=== PATIENT | male | born 1985 | race African-American/Black ===

== ENCOUNTER 2020-03-13 21:23 | Emergency (ER) | payer BC, OTHER ==
[2020-03-13] MEDS ORDERED: NA CHLORIDE 0.9% 1,000 ML ONE (22:58)
[2020-03-13] MEDS ORDERED: CEFTRIAXONE/SWI 1gm 1 GM/10 ML SYR ONE (22:58)
[2020-03-13 23:21] LABS: Hematocrit 44.4 % (39.6-49.0); Lymphocytes % 35.3 % (15.3-44.8); MPV 10.1 fL (7.6-11.3); RBC Red Blood Cell Count 4.64 M/uL (4.33-5.43)
[2020-03-13 23:43] LABS: Albumin 3.8 g/dL (3.4-5.0); Bilirubin Total 0.3 mg/dL (0.2-1.0); Protein, Total 7.9 g/dL (6.4-8.2)
--- NOTE | 2020-03-14 01:38 | ER ---
Nurse's Notes [facility] Name: Akshat Marlow Age: 34 yrs Sex: Male : 1985 Arrival Date: 03/13/2020 Time: 21:24 Bed 5 Private MD: Diagnosis: Hematuria Presentation: 03/13 23:04 Chief complaint: Patient states: Reports he started urinating bright red bloody urine. ea Pt denies injury states "all I was doing was lifting weights". Coronavirus screen: At this time, the client does not indicate any symptoms associated with coronavirus-19. Ebola Screen: No symptoms or risks identified at this time. Initial Sepsis Screen: Does the patient meet any 2 criteria? No. Patient's initial sepsis screen is negative. Does the patient have a suspected source of infection? No. Patient's initial sepsis screen is negative. Risk Assessment: Do you want to hurt yourself or someone else? Patient reports no desire to harm self or others. Onset of symptoms was March 13, 2020. 23:04 Acuity: ERIBERTO 3 ea 23:04 Method Of Arrival: Ambulatory ea Triage Assessment: 23:06 General: Appears in no apparent distress. Behavior is appropriate for age. Pain: Denies ea pain. Historical: - Allergies: 23:06 No Known Allergies; ea - PMHx: 23:06 GERD; ea - PSHx: 23:06 Cholecystectomy; ea - Immunization history:: Adult Immunizations up to date. - Family history:: not pertinent. - Social history:: Smoking status: Patient denies any tobacco usage or history of. Screenin:04 Abuse screen: Denies threats or abuse. Nutritional screening: No deficits noted. ea Tuberculosis screening: No symptoms or risk factors identified. Fall Risk IV access (20 points). Assessment: 23:07 General: Appears in no apparent distress. Behavior is appropriate for age. Pain: Denies ea pain. Neuro: Level of Consciousness is awake, alert, obeys commands, Oriented to person, place, time. Cardiovascular: Patient's skin is warm and dry. Respiratory: Airway is patent Respiratory effort is even, unlabored, Respiratory pattern is regular, symmetrical. : Reports bloody urine. Derm: Skin is pink, warm \\T\\ dry. 23:29 Reassessment: Patient and/or family updated on plan of care and expected duration. Pain ea level reassessed. Patient is alert, oriented x 3, equal unlabored respirations, skin warm/dry/pink. Pt taken to CT. 03/14 01:52 Reassessment: Bladder scanner post void volume is 20 mLs. ea 02:03 Reassessment: Patient and/or family updated on plan of care and expected duration. Pain ea level reassessed. Patient is alert, oriented x 3, equal unlabored respirations, skin warm/dry/pink. Discharge instruction given to patient, verbalized the understanding of instruction. Pt left ED ambulatory tolerating well. Vital Signs: 03/13 21:51 BP 152 / 97; Pulse 96; Temp 99.9(O); Pulse Ox 100% on R/A; tt3 23:00 BP 141 / 75; Pulse 90; Resp 16; Pulse Ox 99% ; rr5 ED Course: 21:24 Patient arrived in ED. cl3 21:58 Jett Monson MD is Attending Physician. danielle 22:00 Luis Oliva RN is Primary Nurse. rr5 22:53 Pelvis XRAY In Process Unspecified. EDMS 22:55 Inserted saline lock: 20 gauge in right antecubital area, using aseptic technique. ea 23:06 Triage completed. ea 23:06 Patient has correct armband on for positive identification. Placed in gown. Bed in low ea position. Call light in reach. Pulse ox on. NIBP on. 23:06 Arm band placed on Patient placed in an exam room, on a stretcher, on pulse oximetry. ea 23:48 CT Stone Protocol In Process Unspecified. EDMT 03/14 01:38 Rad Arthur MD is Referral Physician. [facility] 02:02 No provider procedures requiring assistance completed. IV discontinued, intact, ea bleeding controlled, No redness/swelling at site. Pressure dressing applied. Administered Medications: 03/13 23:00 Drug: Rocephin 1 grams Route: IV; Rate: per protocol; Site: right antecubital; ea 03/14 02:02 Follow up: Response: No adverse reaction; IV Status: Completed infusion ea 03/13 23:04 Drug: NS 0.9% 1000 ml Route: IV; Rate: 1 bolus; Site: right antecubital; ea 03/14 02:01 Follow up: Response: No adverse reaction; IV Status: Completed infusion; IV Intake: ea 1000ml 02:01 Drug: Cipro 500 mg Route: PO; ea 02:02 Follow up: Response: Medication administered at discharge. ea Intake: 02:01 IV: 1000ml; Total: 1000ml. ea Outcome: 01:38 Discharge ordered by . danielle 02:02 Discharged to home ambulatory. dillan 02:02 Condition: stable 02:02 Discharge instructions given to patient, Instructed on discharge instructions, follow up and referral plans. medication usage, Demonstrated understanding of instructions, follow-up care, medications, Prescriptions given X 2. 02:05 Patient left the ED. ea Signatures: Dispatcher [employer] EDMT Jett Monson MD MD cha Antunez, Elena RN RN Luis Velasco RN RN rr5 Mayela Moore cl3 David Betancourt tt3
--- NOTE | 2020-03-14 01:38 | EDPHYS ---
Physician Documentation [facility] Name: Akshat Marlow Age: 34 yrs Sex: Male : 1985 Arrival Date: 03/13/2020 Time: 21:24 Bed 5 Private MD: Jett Vides HPI: 03/13 22:30 This 34 yrs old Black Male presents to ER via Unassigned with complaints of Penile danielle Injury, Penile Bleeding. 22:30 The patient presents with urinary symptoms, HEMATURIA. Onset: The symptoms/episode danielle began/occurred just prior to arrival, today. Modifying factors: The symptoms are alleviated by nothing, the symptoms are aggravated by nothing. Associated signs and symptoms: The patient has no apparent associated signs or symptoms. Severity of symptoms: At their worst the symptoms were mild, in the emergency department the symptoms are unchanged. The patient has experienced a previous episode, last year. Historical: - Allergies: 23:06 No Known Allergies; ea - PMHx: 23:06 GERD; ea - PSHx: 23:06 Cholecystectomy; ea - Immunization history:: Adult Immunizations up to date. - Family history:: not pertinent. - Social history:: Smoking status: Patient denies any tobacco usage or history of. ROS: 22:30 Constitutional: Negative for fever, chills, and weight loss, Eyes: Negative for injury, danielle pain, redness, and discharge, ENT: Negative for injury, pain, and discharge, Neck: Negative for injury, pain, and swelling, Cardiovascular: Negative for chest pain, palpitations, and edema, Respiratory: Negative for shortness of breath, cough, wheezing, and pleuritic chest pain, Abdomen/GI: Negative for abdominal pain, nausea, vomiting, diarrhea, and constipation, Back: Negative for injury and pain, MS/Extremity: Negative for injury and deformity, Skin: Negative for injury, rash, and discoloration, Neuro: Negative for headache, weakness, numbness, tingling, and seizure, Psych: Negative for depression, anxiety, suicide ideation, homicidal ideation, and hallucinations, Allergy/Immunology: Negative for hives, rash, and allergies, Endocrine: Negative for neck swelling, polydipsia, polyuria, polyphagia, and marked weight changes, Hematologic/Lymphatic: Negative for swollen nodes, abnormal bleeding, and unusual bruising. 22:30 : Positive for hematuria, no penile trauma, no sex related. Exam: 22:30 Constitutional: This is a well developed, well nourished patient who is awake, alert, danielle and in no acute distress. Head/Face: Normocephalic, atraumatic. Eyes: Pupils equal round and reactive to light, extra-ocular motions intact. Lids and lashes normal. Conjunctiva and sclera are non-icteric and not injected. Cornea within normal limits. Periorbital areas with no swelling, redness, or edema. ENT: Nares patent. No nasal discharge, no septal abnormalities noted. Tympanic membranes are normal and external auditory canals are clear. Oropharynx with no redness, swelling, or masses, exudates, or evidence of obstruction, uvula midline. Mucous membranes moist. Neck: Trachea midline, no thyromegaly or masses palpated, and no cervical lymphadenopathy. Supple, full range of motion without nuchal rigidity, or vertebral point tenderness. No Meningismus. Chest/axilla: Normal chest wall appearance and motion. Nontender with no deformity. No lesions are appreciated. Cardiovascular: Regular rate and rhythm with a normal S1 and S2. No gallops, murmurs, or rubs. Normal PMI, no JVD. No pulse deficits. Respiratory: Lungs have equal breath sounds bilaterally, clear to auscultation and percussion. No rales, rhonchi or wheezes noted. No increased work of breathing, no retractions or nasal flaring. Abdomen/GI: Soft, non-tender, with normal bowel sounds. No distension or tympany. No guarding or rebound. No evidence of tenderness throughout. Back: No spinal tenderness. No costovertebral tenderness. Full range of motion. Skin: Warm, dry with normal turgor. Normal color with no rashes, no lesions, and no evidence of cellulitis. MS/ Extremity: Pulses equal, no cyanosis. Neurovascular intact. Full, normal range of motion. Neuro: Awake and alert, GCS 15, oriented to person, place, time, and situation. Cranial nerves II-XII grossly intact. Motor strength 5/5 in all extremities. Sensory grossly intact. Cerebellar exam normal. Normal gait. Psych: Awake, alert, with orientation to person, place and time. Behavior, mood, and affect are within normal limits. 22:30 : CVA tenderness, on the right, Male external genitalia: normal, Patient is not circumisioned. Bladder: is normal, Sexual behavior: the patient is sexually active, and reports a single partner. Vital Signs: 21:51 BP 152 / 97; Pulse 96; Temp 99.9(O); Pulse Ox 100% on R/A; tt3 23:00 BP 141 / 75; Pulse 90; Resp 16; Pulse Ox 99% ; rr5 MDM: 21:58 Patient medically screened. [facility] 22:33 Differential diagnosis: nonspecific abdominal pain, UTI, urethritis. Data reviewed: [facility] vital signs, nurses notes, lab test result(s), radiologic studies, CT scan, plain films. Data interpreted: traffic monitor specialist: rate is 96 beats/min, Pulse oximetry: on room air is 100 %. Test interpretation: by ED physician or midlevel provider: plain radiologic studies. Counseling: I had a detailed discussion with the patient and/or guardian regarding: the historical points, exam findings, and any diagnostic results supporting the discharge/admit diagnosis, lab results, radiology results, the need for outpatient follow up, for definitive care, a urologist. 03/14 01:36 ED course: dw patient importance of follow up, no sex. [facility] 03/13 22:30 Order name: CBC with Diff; Complete Time: 01:34 [facility] 03/13 22:30 Order name: Comprehensive Metabolic Panel; Complete Time: 01:34 [facility] 03/13 22:30 Order name: Urine Culture [facility] 03/13 22:30 Order name: CT Stone Protocol [facility] 03/13 22:30 Order name: Pelvis XRAY [facility] 03/13 22:30 Order name: Urine Dipstick-Ancillary (obtain specimen); Complete Time: 23:04 [facility] 03/14 01:37 Order name: Bladder Scanner: note pvr; Complete Time: 01:51 [facility] Administered Medications: 03/13 23:00 Drug: Rocephin 1 grams Route: IV; Rate: per protocol; Site: right antecubital; 03/14 02:02 Follow up: Response: No adverse reaction; IV Status: Completed infusion 03/13 23:04 Drug: NS 0.9% 1000 ml Route: IV; Rate: 1 bolus; Site: right antecubital; 03/14 02:01 Follow up: Response: No adverse reaction; IV Status: Completed infusion; IV Intake: ea 1000ml 02:01 Drug: Cipro 500 mg Route: PO; ea 02:02 Follow up: Response: Medication administered at discharge. ea Disposition: 03/14/20 01:38 Discharged to Home. Impression: Hematuria. - Condition is Stable. - Discharge Instructions: Hematuria, Adult. - Prescriptions for Flomax 0.4 mg Oral Capsule, Sust. Release 24 hr - take 1 capsule by ORAL route once daily 1/2 hour following the same meal each day; 14 capsule. Cipro 500 mg Oral Tablet - take 1 tablet by ORAL route every 12 hours for 7 days; 14 tablet. - Medication Reconciliation Form, Thank You Letter, Antibiotic Education, Prescription Opioid Use, Work release form form. - Follow up: Private Physician; When: 2 - 3 days; Reason: Recheck today's complaints, Continuance of care, Re-evaluation by your physician. Follow up: Rad Arthur MD; When: 2 - 3 days; Reason: Recheck today's complaints, Re-evaluation by your physician. - Problem is new. - Symptoms have improved. Signatures: Dispatcher [employer] EDKY Jett Monson MD MD cha Antunez, Elena RN RN dillan Corrections: (The following items were deleted from the chart) 01:38 01:38 03/14/2020 01:38 Discharged to Home. Impression: Hematuria. Condition is Stable. danielle Forms are Medication Reconciliation Form, Thank You Letter, Antibiotic Education, Prescription Opioid Use. Follow up: Private Physician; When: 2 - 3 days; Reason: Recheck today's complaints, Continuance of care, Re-evaluation by your physician. Problem is new. Symptoms have improved. [facility] 02:05 01:38 03/14/2020 01:38 Discharged to Home. Impression: Hematuria. Condition is Stable. ea Forms are Medication Reconciliation Form, Thank You Letter, Antibiotic Education, Prescription Opioid Use. Follow up: Private Physician; When: 2 - 3 days; Reason: Recheck today's complaints, Continuance of care, Re-evaluation by your physician. Follow up: Rad Arthur; When: 2 - 3 days; Reason: Recheck today's complaints, Re-evaluation by your physician. Problem is new. Symptoms have improved. [facility]
[2020-03-14] MEDS ORDERED: CIPROFLOXACIN HCL 500 MG TAB ONE (02:04)
--- NOTE | 2020-03-14 09:20 | RAD REPORT ---
EXAM DESCRIPTION: RAD - Pelvis - 03/13/2020 10:53 pm CLINICAL HISTORY: HEMATURIA COMPARISON: CT ABD PELVIS W CONTRAST dated 03/11/2008 TECHNIQUE: AP imaging of the pelvis was obtained. FINDINGS: No fracture of the bony pelvis. No fracture, dislocation or other acute hip joint finding. No significant SI joint findings. No soft tissue abnormality. Density of the overlying soft tissues limits detail. IMPRESSION: Negative pelvis for acute or significant findings.
--- NOTE | 2020-03-14 14:31 | RAD REPORT ---
EXAM DESCRIPTION: CT - Stone Protocol - 03/13/2020 11:48 pm\ CLINICAL HISTORY: Abdominal pain; Hematuria COMPARISON: None. TECHNIQUE: Abdomen/pelvis axial images acquired without IV contrast. Coronal and sagittal reformats created. Exam performed according to departmental dose-optimization program which includes automated exposure control, adjustment of mA and/or kV according to patient size, and/or use of iterative recon struction technique. FINDINGS: No free air or significant free fluid. Grossly unremarkable noncontrast appearance of liver, spleen, pancreas, adrenals, kidneys, urinary bl adder, and prostate. Nonvisualization of gallbladder which may be absent. Nonopacified small bowel and appendix unremarkable. Portions of large bowel difficult to accurately comment upon due to lack of adequate distention. Abdominal aorta unremarkable noncontrast appearance. Lower thoracic and lumbosacral spine degenerative disease. 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 IMPRESSION: No CT evidence of acute abdominal/pelvic disease. Electronically signed by: Koby Acevedo MD 03/14/2020 12:09 AM CDT Due to temporary technical issues with the PACS/Fluency reporting system, reports are being signed by the in house radiologist without review as a courtesy to ensure prompt reporting. The interpreting r adiologist is fully responsible for the content of the report.
[2020-03-17 19:05] VITALS: TEMP 99.9
[2020-03-17 19:09] VITALS: BP 141/75; O2SAT 99
== END 2020-03-14 02:05 | disposition home or self-care (01) ==
LOC: ER 21:23
DX: R31.9 Hematuria, unspecified (principal)
CPT/HCPCS: 96365; 87088; 85025; 36415; 80053; 76377; 74176; 72170; 99284; 96366; J0696; J7030; 87086

== ENCOUNTER 2020-11-03 16:49 | Emergency (ER) | payer BC, SELFPAY ==
[2020-11-03] MEDS ORDERED: NA CHLORIDE 0.9% 1,000 ML ONE (21:27)
[2020-11-03 21:32] LABS: Absolute Lymphocytes (CBC) 2.6 K/uL (0.7-4.9); Basophils % 0.8 % (0-1.3); Hematocrit 43.2 % (39.6-49.0); Lymphocytes % 48.1 % (15.3-44.8); MPV 10.4 fL (7.6-11.3); RBC Red Blood Cell Count 4.61 M/uL (4.33-5.43)
[2020-11-03 21:39] LABS: Protime INR 0.95
[2020-11-03 22:02] LABS: ALT/SGPT 19 U/L (12-78); AST/SGOT 19 U/L (15-37); Albumin 3.8 g/dL (3.4-5.0); Alkaline Phosphatase 70 U/L (45-117); BUN Blood Urea Nitrogen 12 mg/dL (7-18); Bicarbonate 27 mmol/L (21-32); Bilirubin Direct < 0.1 mg/dL (0-0.2); Bilirubin Total 0.6 mg/dL (0.2-1.0); Glucose Level 92 mg/dL (74-106); NT PRO-BNP 167 pg/mL (<125); Potassium 4.5 mmol/L (3.5-5.1); Protein, Total 7.7 g/dL (6.4-8.2); Sodium Level 137 mmol/L (136-145); Troponin (Emerg Dept Use Only) < 0.02 ng/mL (0.0-0.045)
[2020-11-03] MEDS ORDERED: ASPIRIN 81 MG CHEWABLE TABLET ONE (22:32)
--- NOTE | 2020-11-03 22:41 | ER ---
Nurse's Notes [facility] Name: Akshat Marlow Age: 35 yrs Sex: Male : 1985 Arrival Date: 11/03/2020 Time: 16:50 Bed 8 Private MD: Diagnosis: Obesity, unspecified;Dyspnea;Paresthesia of skin Presentation: 11/03 17:10 Chief complaint: Patient states: my left hand and occasionally my right hand is going iw numb, and also feels SOB and fatigued, s/s started a week ago, states he feels like his hand might be a little weaker than usual, started a week ago also , states both his feet have been hurting. Coronavirus screen: At this time, the client does not indicate any symptoms associated with coronavirus-19. Ebola Screen: Patient negative for fever greater than or equal to 101.5 degrees Fahrenheit, and additional compatible Ebola Virus Disease symptoms Patient denies exposure to infectious person. Patient denies travel to an Ebola-affected area in the 21 days before illness onset. No symptoms or risks identified at this time. Initial Sepsis Screen: Does the patient meet any 2 criteria? No. Patient's initial sepsis screen is negative. Does the patient have a suspected source of infection? No. Patient's initial sepsis screen is negative. Risk Assessment: Do you want to hurt yourself or someone else?. Onset of symptoms was October 27, 2020. 17:10 Method Of Arrival: Ambulatory iw 17:10 Acuity: ERIBERTO 3 iw Triage Assessment: 21:26 Respiratory: Onset: The symptoms/episode began/occurred. jm8 Historical: - Allergies: 17:13 No Known Allergies; iw - Home Meds: 17:13 Hydrochlorothiazide Oral [Active]; iw - PMHx: 17:13 GERD; iw - PSHx: 17:13 Cholecystectomy; iw - Immunization history:: Adult Immunizations not up to date. - Social history:: Smoking status: Patient reports the use of cigarette tobacco products, denies chronic smoking, but will smoke occasionally, Reported history of juuling and/or vaping. Screenin:23 Abuse screen: Denies threats or abuse. Denies injuries from another. Nutritional jm8 screening: No deficits noted. Tuberculosis screening: No symptoms or risk factors identified. Fall Risk IV access (20 points). Assessment: 21:19 General: Appears in no apparent distress. Behavior is calm, cooperative, appropriate jm8 for age, Reports numbness and shortness of breath. Denies fever, feeling ill, fatigue, chills. Pain: Denies pain. Neuro: Reports numbness. Cardiovascular: Rhythm is regular. Cardiovascular: No deficits noted. Respiratory: Reports shortness of breath. GI: No deficits noted. : No deficits noted. EENT: No deficits noted. Derm: No deficits noted. Musculoskeletal: No deficits noted. 21:24 Respiratory: Airway is patent Breath sounds are clear bilaterally. jm8 21:25 Respiratory: Reports shortness of breath since last week intermitently Respiratory jm8 effort is even, unlabored, Respiratory pattern is regular, symmetrical, the patient has mild shortness of breath. Vital Signs: 17:10 BP 133 / 92; Pulse 72; Resp 16; Temp 97.9; Pulse Ox 100% on R/A; Weight 158.76 kg; iw Height 5 ft. 7 in. (170.18 cm); 22:58 BP 135 / 80; Pulse 80; Resp 18; Temp 98; Pulse Ox 100% on R/A; mg2 17:10 Body Mass Index 54.82 (158.76 kg, 170.18 cm) iw NIH Stroke Scale Scores: 21:08 NIHSS Score: 0 danielle ED Course: 16:50 Patient arrived in ED. as 17:12 Triage completed. iw 17:13 Arm band placed on. iw 20:57 Saurabh Morrison, RN is Primary Nurse. mg2 20:58 Jett Monson MD is Attending Physician. danielle 21:23 Patient has correct armband on for positive identification. Call light in reach. Side jm8 rails up X2. quality assurance monitor chassis on. Pulse ox on. NIBP on. Door closed. Warm blanket given. 21:24 Inserted saline lock: 20 gauge in right antecubital area, using aseptic technique. jm8 Blood collected. 21:33 EKG done, by ED staff, reviewed by Jett Monson MD COVID swab sent to lab. jm8 21:42 CT Head C Spine In Process Unspecified. EDMS 22:02 XRAY Chest (1 view) In Process Unspecified. EDMS 22:40 Ken Gregory MD is Referral Physician. danielle 22:40 Pierre Ashley MD is Referral Physician. danielle 22:58 No provider procedures requiring assistance completed. IV discontinued, intact, mg2 bleeding controlled, No redness/swelling at site. Pressure dressing applied. Administered Medications: 21:18 Drug: NS 0.9% 1000 ml Route: IV; Rate: 125 ml/hr; Site: right antecubital; jm8 22:52 Follow up: Response: No adverse reaction; IV Status: Order to discontinue infusion; IV mg2 Intake: 200ml 22:18 Drug: Aspirin Chewable Tablet 324 mg Route: PO; 22:52 Follow up: Response: No adverse reaction mg2 Intake: 22:52 IV: 200ml; Total: 200ml. mg2 Outcome: 22:40 Discharge ordered by MD. danielle 22:58 Discharged to home ambulatory. mg2 22:58 Condition: good 23:00 Discharge instructions given to patient, Instructed on discharge instructions, follow mg2 up and referral plans. Demonstrated understanding of instructions, follow-up care. 23:00 Patient left the ED. mg2 NIH Stroke Scale - NIH Stroke Score Date: 11/03/2020 Time: 21:08 Total Score = 0 1a. Level of Consciousness (LOC) - 0(Alert) 1b. Level of Consciousness (LOC) (Year \T\ Age) - 0(Both) 1c. LOC Commands (Open \T\ Closes Eyes/Planning Associate) - 0(Both) 2. Best Gaze (Lateral Gaze Paresis) - 0(Normal) 3. Visual Field Loss - 0(No visual loss) 4. Facial Palsy - 0(Normal) 5a. Left Arm: Motor (10-second hold) - 0(No drift) 5b. Right Arm: Motor (10-second hold) - 0(No drift) 6a. Left Leg: Motor (5-second hold - always test supine) - 0(No drift) 6b. Right Leg: Motor (5-second hold - always test supine) - 0(No drift) 7. Limb Ataxia (finger/nose \T\ heel/santo - test with eyes open) - 0(Absent) 8. Sensory Loss (pinprick arms/legs/face) - 0(Normal) 9. Best Language: Aphasia (description/naming/reading) - 0(No aphasia) 10. Dysarthria (speech clarity - read or repeat words) - 0(Normal) 11. Extinction and Inattention (visual/tactile/auditory/spatial/personal) - 0(No abnormality) Initials: danielle Signatures: Dispatcher [employer] Jett Song MD MD cha Martinez, Amelia as Williams, Irene, RN RN Duncan De Luna RN RN Saurabh Morrison RN RN [facility] José Luis Lee RN RN jm8 Corrections: (The following items were deleted from the chart) 17:13 17:10 BP 133 / 92; Pulse 72bpm; Resp 16bpm; Temp 97.9F; iw iw 21:24 21:24 Inserted saline lock: 20 gauge in right antecubital area, using aseptic jm8 technique. jm8 : 21:25 Respiratory: Respiratory effort is even, unlabored, Respiratory pattern jm8 is regular, symmetrical, jm8 : 21:25 Respiratory: Reports shortness of breath since last week intermitently jm8 Respiratory effort is even, unlabored, Respiratory pattern is regular, symmetrical, jm8
--- NOTE | 2020-11-03 22:41 | EDPHYS ---
Physician Documentation [facility] Name: Akshat Marlow Age: 35 yrs Sex: Male : 1985 Arrival Date: 11/03/2020 Time: 16:50 Bed 8 Private MD: ED Physician Jett Monson HPI: 11/03 21:06 This 35 yrs old Black Male presents to ER via Ambulatory with complaints of Numbness - danielle fingers, Shortness Of Breath, fatigue. 21:06 The patient's problem is reported as paresthesias, left thumb, index, middle. Onset: danielle The symptoms/episode began/occurred 2 day(s) ago. Duration: The episodes are intermittent. Context: the episode(s) was witnessed, by no one. The symptoms are alleviated by nothing. The symptoms are aggravated by nothing. Severity of symptoms: At their worst the symptoms were mild in the emergency department the symptoms have resolved. Historical: - Allergies: 17:13 No Known Allergies; iw - Home Meds: 17:13 Hydrochlorothiazide Oral [Active]; iw - PMHx: 17:13 GERD; iw - PSHx: 17:13 Cholecystectomy; iw - Immunization history:: Adult Immunizations not up to date. - Social history:: Smoking status: Patient reports the use of cigarette tobacco products, denies chronic smoking, but will smoke occasionally, Reported history of juuling and/or vaping. ROS: 21:08 Constitutional: Negative for fever, chills, and weight loss, Eyes: Negative for injury, danielle pain, redness, and discharge, ENT: Negative for injury, pain, and discharge, Neck: Negative for injury, pain, and swelling, Cardiovascular: Negative for chest pain, palpitations, and edema, Abdomen/GI: Negative for abdominal pain, nausea, vomiting, diarrhea, and constipation, Back: Negative for injury and pain, : Negative for injury, bleeding, discharge, and swelling, Skin: Negative for injury, rash, and discoloration. 21:08 Respiratory: Positive for shortness of breath. 21:08 MS/extremity: Positive for paresthesias, of the dorsal aspect of distal phalanx of left thumb, dorsal aspect of proximal phalanx of left thumb, dorsal aspect of distal phalanx of left index finger, dorsal aspect of middle phalanx of left index finger, dorsal aspect of proximal phalanx of left index finger, dorsal aspect of distal phalanx of left middle finger, dorsal aspect of middle phalanx of left middle finger, dorsal aspect of proximal phalanx of left middle finger, palmar aspect of distal phalanx of left little finger, palmar aspect of middle phalanx of left little finger, palmar aspect of proximal phalanx of left little finger, palmar aspect of distal phalanx of left ring finger, palmar aspect of middle phalanx of left ring finger, palmar aspect of proximal phalanx of left ring finger, palmar aspect of distal phalanx of left middle finger, palmar aspect of middle phalanx of left middle finger and palmar aspect of proximal phalanx of left middle finger. Exam: 21:08 Radiologist reports: neg danielle 21:08 Constitutional: This is a well developed, well nourished patient who is awake, alert, and in no acute distress. Head/Face: Normocephalic, atraumatic. Eyes: Pupils equal round and reactive to light, extra-ocular motions intact. Lids and lashes normal. Conjunctiva and sclera are non-icteric and not injected. Cornea within normal limits. Periorbital areas with no swelling, redness, or edema. ENT: Nares patent. No nasal discharge, no septal abnormalities noted. Tympanic membranes are normal and external auditory canals are clear. Oropharynx with no redness, swelling, or masses, exudates, or evidence of obstruction, uvula midline. Mucous membranes moist. Neck: Trachea midline, no thyromegaly or masses palpated, and no cervical lymphadenopathy. Supple, full range of motion without nuchal rigidity, or vertebral point tenderness. No Meningismus. Chest/axilla: Normal chest wall appearance and motion. Nontender with no deformity. No lesions are appreciated. Cardiovascular: Regular rate and rhythm with a normal S1 and S2. No gallops, murmurs, or rubs. Normal PMI, no JVD. No pulse deficits. Respiratory: Lungs have equal breath sounds bilaterally, clear to auscultation and percussion. No rales, rhonchi or wheezes noted. No increased work of breathing, no retractions or nasal flaring. Abdomen/GI: Soft, non-tender, with normal bowel sounds. No distension or tympany. No guarding or rebound. No evidence of tenderness throughout. Back: No spinal tenderness. No costovertebral tenderness. Full range of motion. Male : Normal genitalia with no discharge or lesions. Skin: Warm, dry with normal turgor. Normal color with no rashes, no lesions, and no evidence of cellulitis. MS/ Extremity: Pulses equal, no cyanosis. Neurovascular intact. Full, normal range of motion. Neuro: Awake and alert, GCS 15, oriented to person, place, time, and situation. Cranial nerves II-XII grossly intact. Motor strength 5/5 in all extremities. Sensory grossly intact. Cerebellar exam normal. Normal gait. Psych: Awake, alert, with orientation to person, place and time. Behavior, mood, and affect are within normal limits. 22:11 ECG was reviewed by the Attending Physician. danielle 22:37 Musculoskeletal/extremity: DVT Exam: No signs of deep vein thrombosis. no pain, no danielle swelling, no tenderness, negative Homans' sign noted on exam, no appreciated bluish discoloration, no erythema, no increased warmth, no homans, no cords, no trauma, no stasis, no hx dvt,no pe, no hcs. Vital Signs: 17:10 BP 133 / 92; Pulse 72; Resp 16; Temp 97.9; Pulse Ox 100% on R/A; Weight 158.76 kg; iw Height 5 ft. 7 in. (170.18 cm); 22:58 BP 135 / 80; Pulse 80; Resp 18; Temp 98; Pulse Ox 100% on R/A; mg2 17:10 Body Mass Index 54.82 (158.76 kg, 170.18 cm) iw NIH Stroke Scale Scores: 21:08 NIHSS Score: 0 danielle MDM: 20:58 Patient medically screened. danielle 21:10 Antibiotic administration: Not indicated, the patient does not have an appreciated danielle infiltrate. Differential diagnosis: Anemia Anxiety Reaction CHF exacerbation, CVA, TIA, Myocardial Infarction pulmonary edema, Pulmonary Embolism Unstable Angina. The patient's Wells Deep Vein Thrombosis Score was calculated as follows: Total Score: 0-2 Pts- Low Risk. The patient's pulmonary embolism risk score was calculated as follows: Total Score: 0-2 points. This patient was found to be at low risk for a pulmonary embolism by using the Well's assessment criteria. Immunization status:. Data reviewed: vital signs, nurses notes, lab test result(s), EKG, radiologic studies, CT scan, plain films. Data interpreted: air conditioning mechanic: rate is 72 beats/min, rhythm is regular, Pulse oximetry: on room air is 72 %. Test interpretation: by ED physician or midlevel provider: ECG, plain radiologic studies. Counseling: I had a detailed discussion with the patient and/or guardian regarding: the historical points, exam findings, and any diagnostic results supporting the discharge/admit diagnosis, lab results, radiology results, the need for outpatient follow up, for definitive care, a histologist, a family practitioner, a neurologist. 11/03 21:06 Order name: Basic Metabolic Panel [facility] 11/03 21:06 Order name: CBC with Diff [facility] 11/03 21:06 Order name: LFT's [facility] 11/03 21:06 Order name: Magnesium [facility] 11/03 21:06 Order name: NT PRO-BNP; Complete Time: 22:05 [facility] 11/03 21:06 Order name: PT-INR; Complete Time: 22:03 [facility] 11/03 21:06 Order name: Troponin (emerg Dept Use Only); Complete Time: 22:05 [facility] 11/03 21:06 Order name: D-Dimer; Complete Time: 22:03 [facility] 11/03 21:07 Order name: Basic Metabolic Panel; Complete Time: 22:05 [facility] 11/03 21:07 Order name: CBC with Automated Diff; Complete Time: 22:03 [facility] 11/03 21:07 Order name: Liver (Hepatic) Function; Complete Time: 22:05 [facility] 11/03 21:07 Order name: Magnesium; Complete Time: 22:05 [facility] 11/03 22:14 Order name: SARS-COV-2 RT PCR; Complete Time: 22:39 [facility] 11/03 21:06 Order name: XRAY Chest (1 view) [facility] 11/03 21:06 Order name: EKG; Complete Time: 21:08 [facility] 11/03 21:06 Order name: Cardiac monitoring; Complete Time: 21:18 [facility] 11/03 21:06 Order name: EKG - Nurse/Tech; Complete Time: 21:18 [facility] 11/03 21:06 Order name: IV Saline Lock; Complete Time: 21:18 [facility] 11/03 21:06 Order name: Labs collected and sent; Complete Time: 21:18 [facility] 11/03 21:06 Order name: O2 Per Protocol; Complete Time: 21:18 danielle 11/03 21:06 Order name: O2 Sat Monitoring; Complete Time: :18 danielle 11/03 21:06 Order name: CT Head C Spine danielle EC:11 Rate is 53 beats/min. Rhythm is regular. QRS [place] is Normal. PA interval is normal. QRS danielle interval is normal. QT interval is normal. No Q waves. T waves are Normal. ST Segment is depressed in leads III, aVF, V4, V5, V6. Clinical impression: LVH and No evidence of ischemia. Interpreted by me. Reviewed by me. Administered Medications: :18 Drug: NS 0.9% 1000 ml Route: IV; Rate: 125 ml/hr; Site: right antecubital; 8 22:52 Follow up: Response: No adverse reaction; IV Status: Order to discontinue infusion; IV mg2 Intake: 200ml 22:18 Drug: Aspirin Chewable Tablet 324 mg Route: PO; 22:52 Follow up: Response: No adverse reaction mg2 Disposition: 11/03/20 22:40 Discharged to Home. Impression: Obesity, unspecified, Dyspnea, Paresthesia of skin. - Condition is Stable. - Discharge Instructions: Obesity, Adult, Paresthesia, Shortness of Breath, Shortness of Breath, [id number], Peripheral Neuropathy, Aspirin and Your Heart, Paresthesia, Kyye-oc-Rieu, Obesity, Adult, [id number]. - Medication Reconciliation Form, Thank You Letter, Antibiotic Education, Prescription Opioid Use, Work release form form. - Follow up: Private Physician; When: 2 - 3 days; Reason: Recheck today's complaints, Continuance of care, Re-evaluation by your physician. Follow up: Ken Gregory; When: 2 - 3 days; Reason: Recheck today's complaints, Continuance of care, Re-evaluation by your physician. Follow up: Pierre Ashley; When: 2 - 3 days; Reason: Recheck today's complaints, Re-evaluation by your physician. - Problem is new. - Symptoms have improved. NIH Stroke Scale - NIH Stroke Score Date: 11/03/2020 Time: 21:08 Total Score = 0 1a. Level of Consciousness (LOC) - 0(Alert) 1b. Level of Consciousness (LOC) (Year \T\ Age) - 0(Both) 1c. LOC Commands (Open \T\ Closes Eyes/Historical Site Guide) - 0(Both) 2. Best Gaze (Lateral Gaze Paresis) - 0(Normal) 3. Visual Field Loss - 0(No visual loss) 4. Facial Palsy - 0(Normal) 5a. Left Arm: Motor (10-second hold) - 0(No drift) 5b. Right Arm: Motor (10-second hold) - 0(No drift) 6a. Left Leg: Motor (5-second hold - always test supine) - 0(No drift) 6b. Right Leg: Motor (5-second hold - always test supine) - 0(No drift) 7. Limb Ataxia (finger/nose \T\ heel/santo - test with eyes open) - 0(Absent) 8. Sensory Loss (pinprick arms/legs/face) - 0(Normal) 9. Best Language: Aphasia (description/naming/reading) - 0(No aphasia) 10. Dysarthria (speech clarity - read or repeat words) - 0(Normal) 11. Extinction and Inattention (visual/tactile/auditory/spatial/personal) - 0(No abnormality) Initials: danielle Signatures: Dispatcher [employer] [facility] Jett Monson MD MD cha Williams, Irene, RN RN Duncan De Luna RN RN Saurabh Morrison RN RN [facility] José Luis Lee RN RN [id number] Corrections: (The following items were deleted from the chart) 21:33 21:07 CORONAVIRUS+ ordered. [facility] 23:00 22:40 11/03/2020 22:40 Discharged to Home. Impression: Obesity, unspecified; mg2 Dyspnea; Paresthesia of skin. Condition is Stable. Discharge Instructions: Obesity, Adult, Paresthesia, Shortness of Breath, Shortness of Breath, [id number], Peripheral Neuropathy, Aspirin and Your Heart, Paresthesia, [id number], Obesity, Adult, [id number]-[id number]. Forms are Medication Reconciliation Form, Thank You Letter, Antibiotic Education, Prescription Opioid Use. Follow up: Private Physician; When: 2 - 3 days; Reason: Recheck today's complaints, Continuance of care, Re-evaluation by your physician. Follow up: Ken Gregory; When: 2 - 3 days; Reason: Recheck today's complaints, Continuance of care, Re-evaluation by your physician. Follow up: Pierre Ashley; When: 2 - 3 days; Reason: Recheck today's complaints, Re-evaluation by your physician. Problem is new. Symptoms have improved. danielle
[2020-11-03 23:05] VITALS: O2SAT 100
[2020-11-03 23:07] VITALS: BP 135/80; TEMP 98
--- NOTE | 2020-11-04 08:32 | RAD REPORT ---
EXAM DESCRIPTION: RAD - Chest Single View - 11/03/2020 10:01 pm CLINICAL HISTORY: DYSPNEA Chest pain. COMPARISON: CHEST PA AND LAT 2 VIEW dated 10/02/2010; CHEST PA AND LAT 2 VIEW dated 03/11/2008 FINDINGS: Portable technique limits examination quality. The lungs are grossly clear. The heart is prominent in size. No displaced fractures.
--- NOTE | 2020-11-04 11:28 | RAD REPORT ---
EXAM DESCRIPTION: Head C Spine Mpr Wo Con. CLINICAL HISTORY: Radiculopathy;Numbness/tingling. TECHNIQUE: Axial, coronal, and sagittal images through the brain were performed in the absence of in travenous contrast. CT of the cervical spine was performed without contrast. Axial, coronal, and sagittal reconstructions were created and sent to PACS. These exams were performed according to our departmental dose-optimization program which includes use of Automated Exposure Control, adjustment of the mA and/or kV according to patient size and/or use o f iterative reconstruction technique. COMPARISON: None. FINDINGS: CT Head: The brain parenchyma appears unremarkable. There is no intra-axial or extra-axial bleed seen. There i s no mass or mass effect. The ventricles are normal in size shape and configuration. The orbital cont ents appear unremarkable. The visualized paranasal sinuses and mastoid air cells are patent. No fracture is identified. CT cervical spine: No acute osseous abnormality identified. Vertebral body height and alignment are maintained. No atlan todental interval widening. Atlantoaxial alignment is maintained. Small multilevel posterior disc ost eophyte complexes with no significant central canal or neuroforaminal narrowing. Paraspinal soft tissues: Unremarkable. IMPRESSION: 1. No acute intracranial abnormality identified. 2. No acute osseous abnormality identified in the cervical spine. Minimal degenerative changes with no significant central canal or neuroforaminal narrowing. Electronically signed by: Linda Merritt MD 11/03/2020 10:01 PM CDT Due to temporary technical issues with the PACS/Fluency reporting system, reports are being signed by the in house radiologist without review as a courtesy to ensure prompt reporting. The interpreting r adiologist is fully responsible for the content of the report.
--- NOTE | 2020-11-04 16:10 | EKG ---
Test Date: 2020-11-03 Test Time: 21:14:32 Probe Operator: CLAIR MEASUREMENT RESULTS: Intervals: Rate: 53 NC: 178 QRSD: 102 QT: 442 QTc: 414 [place]: P: NC: 178 QRS: 17 T: -32 INTERPRETIVE STATEMENTS: Sinus bradycardia with sinus arrhythmia Voltage criteria for left ventricular hypertrophy ST & T wave abnormality, consider inferolateral ischemia Abnormal ECG Compared to ECG 10/02/2010 10:31:53 Left ventricular hypertrophy now present ST (T wave) deviation now present Possible ischemia now present Sinus rhythm no longer present Electronically Signed On 11-04-20 16:07:03 CDT by Ken Gregory
== END 2020-11-03 23:00 | disposition home or self-care (01) ==
LOC: ER 16:49
DX: R20.2 Paresthesia of skin (principal); E66.9 Obesity, unspecified; F17.210 Nicotine dependence, cigarettes, uncomplicated; Z20.822 Contact with and (suspected) exposure to COVID-19
CPT/HCPCS: 36415; 70450; 71045; 72125; 80048; 80076; 83735; 83880; 84484; 85025; 85379; 85610; 93005; 96360; 96361; 99284; J7030; U0003